=== PATIENT | female | born 1940 | race American Indian/Alaskan Native ===

== ENCOUNTER 2017-02-22 11:29 | Emergency (ER) | payer MEDICARE ==
[~2017-02-22] VITALS: Ht 165.1 cm; Wt 99.9 kg
[~2017-02-22 11:29] MED LIST: INSU100C5 SQ-INSULIN; INSU100V13 SQ-INSULIN
[2017-02-22 13:27] VITALS: BP 159/60
== END 2017-02-22 13:31 | disposition home or self-care (01) ==
LOC: ED 13:29
DX: S83.411A Sprain of medial collateral ligament of right knee, initial encounter (principal); S83.421A Sprain of lateral collateral ligament of right knee, initial encounter; I10 Essential (primary) hypertension; E11.9 Type 2 diabetes mellitus without complications; E78.00 Pure hypercholesterolemia, unspecified; Z99.2 Dependence on renal dialysis; W01.0XXA Fall on same level from slipping, tripping and stumbling without subsequent striking against object, initial encounter; Y93.89 Activity, other specified; Y92.89 Other specified places as the place of occurrence of the external cause; Y99.8 Other external cause status
CPT/HCPCS: 99284

== ENCOUNTER 2017-09-04 10:42 | Emergency (ER) | payer MEDICARE ==
[2017-09-04 11:26] VITALS: BP 137/38
== END 2017-09-04 13:30 | disposition home or self-care (01) ==
LOC: ED 10:48
DX: G89.11 Acute pain due to trauma (principal); M25.552 Pain in left hip; I12.0 Hypertensive chronic kidney disease with stage 5 chronic kidney disease or end stage renal disease; E11.22 Type 2 diabetes mellitus with diabetic chronic kidney disease; E11.40 Type 2 diabetes mellitus with diabetic neuropathy, unspecified; N18.6 End stage renal disease; Z99.2 Dependence on renal dialysis; W01.0XXA Fall on same level from slipping, tripping and stumbling without subsequent striking against object, initial encounter; Y93.89 Activity, other specified; Y92.89 Other specified places as the place of occurrence of the external cause; Y99.8 Other external cause status
CPT/HCPCS: 99283

== ENCOUNTER 2017-09-06 16:48 | Inpatient (IN) | payer MEDICARE ==
[~2017-09-06] VITALS: Ht 160 cm; Wt 91.2 kg
[2017-09-06 19:28] LABS: HEMATOCRIT 30.4 % (34.6-47.8); HEMOGLOBIN 10.1 g/dL (11.7-16.4)
[2017-09-06 19:35] LABS: BLOOD UREA NITROGEN 23 mg/dL (7-18)
[2017-09-06] MEDS ORDERED: CEFTRIAXONE PMX 1GM/50ML 50 ML IV ONE (20:30)
[2017-09-06] MEDS ORDERED: SODIUM CHLORIDE FLUSH 10ML SYR IVF ONE (20:30)
[2017-09-06] MEDS ORDERED: HYDROcodone/APAP 5/325 TABLET PO ONE (20:30)
[2017-09-06] MEDS ORDERED: HYDROcodone/APAP 5/325 TABLET ONE (20:41)
[2017-09-06] MEDS ORDERED: ACETAMINOPHEN 325 MG TABLET PO PRN (21:00)
[2017-09-06] MEDS ORDERED: DEXTROSE 4 GM TAB.CHEW PO PRN (21:00)
[2017-09-06] MEDS ORDERED: DEXTROSE 50%, 50ML SYRINGE IVPush PRN (21:00)
[2017-09-06] MEDS ORDERED: GLUCAGON 1 MG IM PRN (21:00)
[2017-09-06] MEDS ORDERED: CEFTRIAXONE PMX 1GM/50ML 50 ML ONE (21:16)
[2017-09-06] MEDS ORDERED: hydrALAzine 20 MG/ML, 1ML IV PRN (21:30)
[2017-09-06] MEDS ORDERED: CALAMINE LOTION 180ML TP PRN (21:30)
[2017-09-06 22:00] VITALS: BP 127/67
[2017-09-06] MEDS: SODIUM CHLORIDE FLUSH 10ML SYR IVF SCH (22:18)
[2017-09-06] MEDS: INSULIN ASPART 100 UNITS/ML, PEN SQ-INSULIN SCH (22:28)
[2017-09-06] MEDS: ENOXAPARIN 30 MG/0.3 ML SQ SCH (23:36)
[2017-09-07 01:54] VITALS: BP 122/55
[2017-09-07 06:02] LABS: BLOOD UREA NITROGEN 26 mg/dL (7-18)
[2017-09-07] MEDS: INSULIN ASPART 100 UNITS/ML, PEN SQ-INSULIN SCH ×4 (07:00→21:03)
[2017-09-07] MEDS: LISINOPRIL 20 MG TABLET PO SCH (08:02)
[2017-09-07] MEDS: SODIUM CHLORIDE FLUSH 10ML SYR IVF SCH ×2 (08:04→21:02)
[2017-09-07 08:21] VITALS: BP 148/68
[2017-09-07] MEDS ORDERED: SIMV5TAB5 PO (12:46)
[2017-09-07] MEDS ORDERED: PSEU120T60 PO (12:46)
[2017-09-07] MEDS ORDERED: ASCO500T5 PO (12:46)
[2017-09-07] MEDS ORDERED: ERGO500017 PO (12:46)
[2017-09-07] MEDS ORDERED: SODI650T PO (12:47)
[2017-09-07] MEDS ORDERED: AMLO10TA2 PO (12:47)
[2017-09-07] MEDS ORDERED: ASPI-515 PO (12:47)
[2017-09-07] MEDS ORDERED: FURO20TA3 PO ×2 (12:47)
[2017-09-07] MEDS ORDERED: CALC0.25 PO (12:47)
[2017-09-07] MEDS ORDERED: FERR-36 PO (12:47)
[2017-09-07] MEDS ORDERED: MULT-516 PO (12:47)
[2017-09-07] MEDS ORDERED: LOSA25TA5 PO (12:47)
[2017-09-07] MEDS ORDERED: OMEP-110 PO (12:50)
[2017-09-07] MEDS: HYDROcodone/APAP 5/325 TABLET PO PRN (12:56)
[2017-09-07 14:45] VITALS: BP 159/59
[2017-09-07 20:29] VITALS: BP 128/66
[2017-09-07] MEDS: CEFTRIAXONE PMX 1GM/50ML 50 ML IV SCH (21:02)
[2017-09-07] MEDS: ENOXAPARIN 30 MG/0.3 ML SQ SCH (22:43)
[2017-09-08 02:00] VITALS: BP 149/60
[2017-09-08] MEDS: HYDROcodone/APAP 5/325 TABLET PO PRN ×3 (02:20→16:27)
[2017-09-08 05:57] LABS: HEMATOCRIT 28.8 % (34.6-47.8); HEMOGLOBIN 9.6 g/dL (11.7-16.4); WHITE BLOOD COUNT 7.8 x10^3/uL (3.4-10)
[2017-09-08 06:11] LABS: BLOOD UREA NITROGEN 47 mg/dL (7-18)
[2017-09-08 07:00] VITALS: BP 149/66
[2017-09-08] MEDS: INSULIN ASPART 100 UNITS/ML, PEN SQ-INSULIN SCH ×4 (07:00→20:13)
[2017-09-08] MEDS: SODIUM CHLORIDE FLUSH 10ML SYR IVF SCH ×2 (08:21→20:13)
[2017-09-08] MEDS: LISINOPRIL 20 MG TABLET PO SCH (08:21)
[2017-09-08 16:08] VITALS: BP 156/78
[2017-09-08] MEDS: CEFTRIAXONE PMX 1GM/50ML 50 ML IV SCH (20:13)
[2017-09-08 20:35] VITALS: BP 160/66
[2017-09-08] MEDS: ENOXAPARIN 30 MG/0.3 ML SQ SCH (23:21)
[2017-09-09 00:42] VITALS: BP 152/52
[2017-09-09] MEDS: HYDROcodone/APAP 5/325 TABLET PO PRN ×3 (00:54→12:06)
[2017-09-09 05:08] LABS: HEMATOCRIT 27.2 % (34.6-47.8); HEMOGLOBIN 9.1 g/dL (11.7-16.4); WHITE BLOOD COUNT 7.2 x10^3/uL (3.4-10)
[2017-09-09 05:29] LABS: ASPARTATE AMINO TRANSFERASE 17 U/L (15-37); BLOOD UREA NITROGEN 24 mg/dL (7-18); FERRITIN 894.5 ng/mL (8-252); TOTAL IRON BINDING CAPACITY 199 mcg/dL (250-450)
[2017-09-09] MEDS: INSULIN ASPART 100 UNITS/ML, PEN SQ-INSULIN SCH ×2 (07:00→12:07)
[2017-09-09] MEDS: LISINOPRIL 20 MG TABLET PO SCH (08:13)
[2017-09-09] MEDS: SODIUM CHLORIDE FLUSH 10ML SYR IVF SCH (08:13)
[2017-09-09 08:27] VITALS: BP 150/46
[2017-09-09 10:09] LABS: HEP B SURF. AB 5.7 mIU/mL (0.0-10.0)
[2017-09-09] MEDS ORDERED: AMOX1TAB64 PO (11:32)
== END 2017-09-09 15:00 | DRG 689 ==
LOC: ED 18:01 → EDIP 20:20 → 4WST 21:38
PROVIDERS: ADMIT Family Medicine; ATTEND Family Medicine
PROC: 0T9B70Z Drainage of Bladder with Drainage Device, Via Natural or Artificial Opening (ICD-10-PCS; principal; 2017-09-06)
PROC: 5A1D70Z Performance of Urinary Filtration, Intermittent, Less than 6 Hours Per Day (ICD-10-PCS; 2017-09-08)
DX: N39.0 Urinary tract infection, site not specified (principal); N18.6 End stage renal disease; G93.41 Metabolic encephalopathy; E44.0 Moderate protein-calorie malnutrition; E11.22 Type 2 diabetes mellitus with diabetic chronic kidney disease; I13.11 Hypertensive heart and chronic kidney disease without heart failure, with stage 5 chronic kidney disease, or end stage renal disease; W18.30XA Fall on same level, unspecified, initial encounter; B95.2 Enterococcus as the cause of diseases classified elsewhere; E78.5 Hyperlipidemia, unspecified; F03.90 Unspecified dementia, unspecified severity, without behavioral disturbance, psychotic disturbance, mood disturbance, and anxiety; N25.0 Renal osteodystrophy; D63.1 Anemia in chronic kidney disease; Z99.2 Dependence on renal dialysis; Y93.89 Activity, other specified; Y92.89 Other specified places as the place of occurrence of the external cause; Y99.8 Other external cause status
CPT/HCPCS: 36415; 70450; 80048; 80053; 80076; 81001; 82040; 82306; 82728; 82962; 83540; 83550; 83735; 83970; 84100; 84550; 85025; 86704; 86706; 87077; 87086; 87186; 87340; 99285; J0696; J1650; J1815

== ENCOUNTER 2017-09-21 12:36 | Inpatient (IN) | payer MEDICARE ==
[~2017-09-21] VITALS: Ht 157.5 cm; Wt 85.2 kg
[~2017-09-21 12:36] MED LIST changes: +AMLO10TA2 PO; +AMOX1TAB64 PO; +ASCO500T5 PO; +ASPI-515 PO; +CALC0.25 PO; +ERGO500017 PO; +FERR-36 PO; +FURO20TA3 PO; +LOSA25TA5 PO; +MULT-516 PO; +OMEP-110 PO; +PSEU120T60 PO; +SIMV5TAB5 PO; +SODI650T PO
[2017-09-21 12:53] LABS: HEMOGLOBIN 10.5 g/dL (11.7-16.4); WHITE BLOOD COUNT 10.8 x10^3/uL (3.4-10)
[2017-09-21] MEDS ORDERED: PLEASE ENTER HEIGHT AND WEIGHT MC SCH (13:00)
[2017-09-21] MEDS ORDERED: SODIUM CHLORIDE FLUSH 10ML SYR IVF ONE (13:00)
[2017-09-21 13:08] LABS: IS PT STATUS REG ER OR PRE ER? YES
[2017-09-21] MEDS ORDERED: DEXTROSE 50%, 50ML SYRINGE ONE (13:26)
[2017-09-21] MEDS ORDERED: AZITHROMYCIN 500 MG in SODIUM CHLORIDE 0.9% 250 ML IV ONE (13:30)
[2017-09-21] MEDS ORDERED: DEXTROSE 50%, 50ML SYRINGE IVPush ONE (13:30)
[2017-09-21] MEDS ORDERED: CEFTRIAXONE PMX 1GM/50ML 50 ML IV ONE (13:30)
[2017-09-21] MEDS ORDERED: CEFTRIAXONE PMX 1GM/50ML 50 ML ONE (13:32)
[2017-09-21] MEDS ORDERED: DEXTROSE 10% 500 ML IV SCH ×2 (14:00→15:25)
[2017-09-21] MEDS ORDERED: POTASSIUM CHLORIDE 40 MEQ in SODIUM CHLORIDE 0.9% 500 ML IV ONE ×2 (14:30→17:40)
[2017-09-21] MEDS ORDERED: POTASSIUM CHLORIDE 40 MEQ in D5%-LACTATED RINGERS 1,000 ML IV SCH (15:00)
[2017-09-21] MEDS ORDERED: ONDANSETRON 2MG/ML, 2ML IVPush PRN (15:00)
[2017-09-21] MEDS ORDERED: ACETAMINOPHEN 325 MG TABLET ONE (15:03)
[2017-09-21] MEDS: ACETAMINOPHEN 325 MG TABLET PO PRN ×2 (15:05→22:56)
[2017-09-21 15:13] LABS: RAPID INFLUENZA A Negative (Negative); RAPID INFLUENZA B Negative (Negative)
[2017-09-21] MEDS ORDERED: POTASSIUM CHLORIDE 40 MEQ in DEXTROSE 10% 1,000 ML IV SCH (16:30)
[2017-09-21] MEDS ORDERED: ERGOCALCIFEROL 50,000 UNIT CAPSULE PO SCH (17:30)
[2017-09-21 19:44] VITALS: BP 154/53
[2017-09-21] MEDS ORDERED: POTASSIUM CHLORIDE 40 MEQ in DEXTROSE 5% 1,000 ML IV SCH (20:30)
[2017-09-21] MEDS ORDERED: DEXTROSE 5% 1,000 ML IV SCH (20:30)
[2017-09-21] MEDS: [UNRECOGNIZED DRUG - OTHER] PO SCH (21:00)
[2017-09-21] MEDS ORDERED: FUROSEMIDE 20 MG TABLET PO SCH (21:00)
[2017-09-21] MEDS: FERROUS SULFATE 325 MG TABLET PO SCH (21:08)
[2017-09-21] MEDS: SODIUM BICARBONATE 650 MG TABLET PO SCH (21:09)
[2017-09-21] MEDS: FAMOTIDINE 20 MG TABLET PO SCH (21:09)
[2017-09-21] MEDS: SIMVASTATIN 5 MG TABLET PO SCH (21:46)
[2017-09-21] MEDS ORDERED: hydrALAzine 20 MG/ML, 1ML ONE (22:02)
[2017-09-21] MEDS: hydrALAzine 20 MG/ML, 1ML IV PRN (22:04)
[2017-09-21] MEDS ORDERED: hydrALAzine 20 MG/ML, 1ML IV PRN (22:30)
[2017-09-22 04:23] LABS: BLOOD UREA NITROGEN 25 mg/dL (7-18)
[2017-09-22 05:00] VITALS: BP 176/44
[2017-09-22] MEDS ORDERED: DEXTROSE 5% 1,000 ML IV SCH (05:00)
[2017-09-22] MEDS: hydrALAzine 20 MG/ML, 1ML IV PRN (05:37)
[2017-09-22] MEDS: [UNRECOGNIZED DRUG - OTHER] PO SCH ×4 (06:00→21:00)
[2017-09-22] MEDS ORDERED: FUROSEMIDE 20 MG TABLET PO SCH (09:00)
[2017-09-22] MEDS: SODIUM BICARBONATE 650 MG TABLET PO SCH (09:25)
[2017-09-22] MEDS: ASPIRIN 81 MG TABLET EC PO SCH (09:25)
[2017-09-22] MEDS: FAMOTIDINE 20 MG TABLET PO SCH (09:25)
[2017-09-22] MEDS: ASCORBIC ACID 500 MG TABLET PO SCH (09:26)
[2017-09-22] MEDS: AMLODIPINE 5 MG TABLET PO SCH (09:26)
[2017-09-22] MEDS: OMEPRAZOLE 20 MG CAPSULE.DR PO SCH (09:26)
[2017-09-22] MEDS: ACETAMINOPHEN 325 MG TABLET PO PRN ×3 (09:26→22:26)
[2017-09-22] MEDS: MULTIVITAMIN 1 TABLET PO SCH (09:26)
[2017-09-22] MEDS: LOSARTAN 25MG TABLET PO SCH (09:27)
[2017-09-22] MEDS: CALCITRIOL 0.25 MCG CAPSULE PO SCH (09:27)
[2017-09-22] MEDS: FERROUS SULFATE 325 MG TABLET PO SCH ×2 (09:28→22:25)
[2017-09-22] MEDS ORDERED: CAPSAICIN CRM 0.025%, 60GM TP PRN (10:00)
[2017-09-22] MEDS: HEPARIN 5,000 UNITS/ML, 1ML SQ SCH ×2 (12:10→22:25)
[2017-09-22 14:15] VITALS: BP 130/69
[2017-09-22] MEDS ORDERED: DEXTROSE 10% 500 ML IV SCH (15:25)
[2017-09-22] MEDS: INSULIN ASPART 100 UNITS/ML, PEN SQ-INSULIN SCH ×2 (16:00→23:18)
[2017-09-22 20:05] VITALS: BP 137/56
[2017-09-22] MEDS: SIMVASTATIN 5 MG TABLET PO SCH (22:25)
[2017-09-23 00:49] VITALS: BP 145/68
[2017-09-23 05:15] LABS: HEMATOCRIT 26.9 % (34.6-47.8); HEMOGLOBIN 8.9 g/dL (11.7-16.4); WHITE BLOOD COUNT 8.2 x10^3/uL (3.4-10)
[2017-09-23 05:20] LABS: BLOOD UREA NITROGEN 13 mg/dL (7-18)
[2017-09-23] MEDS: [UNRECOGNIZED DRUG - OTHER] PO SCH ×4 (05:20→20:28)
[2017-09-23] MEDS: INSULIN ASPART 100 UNITS/ML, PEN SQ-INSULIN SCH ×4 (07:00→20:29)
[2017-09-23 08:00] VITALS: BP 134/41
[2017-09-23 09:20] VITALS: BP 143/54
[2017-09-23] MEDS: AMLODIPINE 5 MG TABLET PO SCH (09:35)
[2017-09-23] MEDS: ASCORBIC ACID 500 MG TABLET PO SCH (09:35)
[2017-09-23] MEDS: CALCITRIOL 0.25 MCG CAPSULE PO SCH (09:35)
[2017-09-23] MEDS: OMEPRAZOLE 20 MG CAPSULE.DR PO SCH (09:35)
[2017-09-23] MEDS: LOSARTAN 25MG TABLET PO SCH (09:35)
[2017-09-23] MEDS: MULTIVITAMIN 1 TABLET PO SCH (09:35)
[2017-09-23] MEDS: FERROUS SULFATE 325 MG TABLET PO SCH ×2 (09:35→20:28)
[2017-09-23] MEDS: ASPIRIN 81 MG TABLET EC PO SCH (09:36)
[2017-09-23] MEDS: HEPARIN 5,000 UNITS/ML, 1ML SQ SCH (11:14)
[2017-09-23 14:04] VITALS: BP 127/52
[2017-09-23] MEDS ORDERED: INSU100V13 SQ-INSULIN ×2 (16:17)
[2017-09-23 19:39] VITALS: BP 153/68
[2017-09-23] MEDS: ACETAMINOPHEN 325 MG TABLET PO PRN (20:28)
[2017-09-23] MEDS: SIMVASTATIN 5 MG TABLET PO SCH (20:28)
[2017-09-24 01:16] VITALS: BP 151/63
[2017-09-24 05:56] LABS: HEMATOCRIT 28.8 % (34.6-47.8); HEMOGLOBIN 9.7 g/dL (11.7-16.4); WHITE BLOOD COUNT 8.9 x10^3/uL (3.4-10)
[2017-09-24] MEDS: HEPARIN 5,000 UNITS/ML, 1ML SQ SCH (05:56)
[2017-09-24] MEDS: [UNRECOGNIZED DRUG - OTHER] PO SCH ×3 (05:56→16:40)
[2017-09-24 06:22] LABS: ASPARTATE AMINO TRANSFERASE 16 U/L (15-37); BLOOD UREA NITROGEN 21 mg/dL (7-18)
[2017-09-24] MEDS: INSULIN ASPART 100 UNITS/ML, PEN SQ-INSULIN SCH ×3 (07:00→16:43)
[2017-09-24 07:09] VITALS: BP 159/61
[2017-09-24] MEDS: ASPIRIN 81 MG TABLET EC PO SCH (09:22)
[2017-09-24] MEDS: FERROUS SULFATE 325 MG TABLET PO SCH (09:22)
[2017-09-24] MEDS: LOSARTAN 25MG TABLET PO SCH (09:22)
[2017-09-24] MEDS: CALCITRIOL 0.25 MCG CAPSULE PO SCH (09:22)
[2017-09-24] MEDS: MULTIVITAMIN 1 TABLET PO SCH (09:22)
[2017-09-24] MEDS: OMEPRAZOLE 20 MG CAPSULE.DR PO SCH (09:22)
[2017-09-24] MEDS: ASCORBIC ACID 500 MG TABLET PO SCH (09:22)
[2017-09-24] MEDS: AMLODIPINE 5 MG TABLET PO SCH (09:22)
[2017-09-24 16:23] VITALS: BP 150/61
[2017-09-24] MEDS ORDERED: LOSARTAN 50MG TABLET PO SCH (21:00)
== END 2017-09-24 17:10 | disposition home or self-care (01) | DRG 871 ==
LOC: ED 12:58 → EDIP 14:23 → 4WST 17:07 → CCU 18:50 → 4EST 09-22 14:10
PROVIDERS: ADMIT Internal Medicine; ATTEND Internal Medicine
PROC: 5A1D70Z Performance of Urinary Filtration, Intermittent, Less than 6 Hours Per Day (ICD-10-PCS; principal; 2017-09-22)
DX: A41.9 Sepsis, unspecified organism (principal); N18.6 End stage renal disease; E11.22 Type 2 diabetes mellitus with diabetic chronic kidney disease; E11.40 Type 2 diabetes mellitus with diabetic neuropathy, unspecified; I12.0 Hypertensive chronic kidney disease with stage 5 chronic kidney disease or end stage renal disease; E11.649 Type 2 diabetes mellitus with hypoglycemia without coma; D63.8 Anemia in other chronic diseases classified elsewhere; E78.00 Pure hypercholesterolemia, unspecified; E87.6 Hypokalemia; E20.8 Other hypoparathyroidism; F03.90 Unspecified dementia, unspecified severity, without behavioral disturbance, psychotic disturbance, mood disturbance, and anxiety; K21.9 Gastro-esophageal reflux disease without esophagitis; R09.02 Hypoxemia; R29.6 Repeated falls; Z79.4 Long term (current) use of insulin; Z91.81 History of falling; Z99.2 Dependence on renal dialysis
CPT/HCPCS: 36415; 36600; 70450; 71010; 71250; 80047; 80048; 80053; 82040; 82962; 83605; 84100; 84484; 85025; 85610; 85730; 87040; 87081; 87400; 93005; 96365; 96366; 96367; 96368; 96375; J0456; J0696; J1644; J1815; J3480; J7070; J0360; J7040; J7050

== ENCOUNTER 2017-10-21 01:38 | Emergency (ER) | payer MEDICARE ==
[~2017-10-21] VITALS: Ht 167.6 cm; Wt 80.0 kg
[2017-10-21 02:59] LABS: BASOPHILS # (AUTO) 0.04 x10^3/uL (0-0.1); BASOPHILS % (AUTO) 0 % (0-1); EOSINOPHILS # (AUTO) 0.07 x10^3/uL (0-0.4); EOSINOPHILS % (AUTO) 1 % (1-7); LYMPHOCYTES # (AUTO) 1.18 x10^3/uL (1-3.4); LYMPHOCYTES % (AUTO) 13 % (22-44); MD NO; MEAN CORPUSCULAR HEMOGLOBIN 30.1 pg (27.0-34.8); MEAN CORPUSCULAR HGB CONC 32.6 g/dL (32.4-35.8); MEAN CORPUSCULAR VOLUME 92.4 fL (80-100); MEAN PLATELET VOLUME 8.5 fL (7.4-10.4); MONOCYTES # (AUTO) 0.76 x10^3/uL (0.2-0.8); MONOCYTES % (AUTO) 8 % (2-9); NEUTROPHILS # (AUTO) 7.12 x10^3/uL (1.8-6.8); NEUTROPHILS % (AUTO) 78 % (42-75); PLATELET COUNT 258 x10^3/uL (130-400); RED CELL DISTRIBUTION WIDTH 16.1 % (9.6-15.2)
[2017-10-21 03:07] LABS: ANION GAP 9 mmol/L (5-15); CALCIUM 10.7 mg/dL (8.5-10.1); CHLORIDE 94 mmol/L (98-107); CREATININE 5.72 mg/dL (0.55-1.02)
[2017-10-21 04:06] LABS: MICROSCOPIC INDICATED
[2017-10-21 04:15] LABS: CULTURE INDICATED? YES
[2017-10-21 04:57] LABS: RAPID INFLUENZA A Negative (Negative); RAPID INFLUENZA B Negative (Negative)
[2017-10-21 07:52] VITALS: BP 137/36
== END 2017-10-21 08:28 | disposition home or self-care (01) ==
LOC: ED 08:22
DX: S82.391A Other fracture of lower end of right tibia, initial encounter for closed fracture (principal); S82.831A Other fracture of upper and lower end of right fibula, initial encounter for closed fracture; K21.9 Gastro-esophageal reflux disease without esophagitis; E78.00 Pure hypercholesterolemia, unspecified; E11.22 Type 2 diabetes mellitus with diabetic chronic kidney disease; Z79.4 Long term (current) use of insulin; Z99.2 Dependence on renal dialysis; F02.81 Dementia in other diseases classified elsewhere, unspecified severity, with behavioral disturbance; G30.1 Alzheimer's disease with late onset; I12.0 Hypertensive chronic kidney disease with stage 5 chronic kidney disease or end stage renal disease; N18.6 End stage renal disease; W19.XXXA Unspecified fall, initial encounter; Y93.89 Activity, other specified; Y99.8 Other external cause status; Y92.89 Other specified places as the place of occurrence of the external cause
CPT/HCPCS: 36415; 71045; 80048; 81001; 82040; 85025; 87086; 87400; 99285